=== PATIENT | female | born 1980 | race Caucasian/White ===

== ENCOUNTER 2016-10-31 08:50 | Emergency (ER) | payer OTHER ==
[2016-10-31 09:48] LABS: BASOPHILS 0.7 % (0.0-2.0); EOSINOPHILS 1.8 % (0-7); HEMATOCRIT 41.6 % (36.0-48.0); HEMOGLOBIN 14.3 g/dL (12-16); IMMATURE GRANULOCYTES 0.1 % (0-5); LYMPHOCYTES 44.8 % (15-50); MCH 33.6 pg (26.0-34.0); MCHC 34.4 g/dL (31.0-37.0); MCV 97.9 fL (80.0-100.0); MEAN PLATELET VOLUME 10.2 fL (7.4-10.4); MONOCYTES 9.6 % (2-11); PLATELET COUNT 249 10x3/uL (130-400); RBC 4.25 10x6/uL (4.00-5.40); RDW 12.9 % (11.5-14.5); WBC 7.1 10x3/uL (4.8-10.8)
[2016-10-31 09:55] LABS: APPEARANCE HAZY (CLEAR); BILIRUBIN NEGATIVE (NEGATIVE); COLOR YELLOW (YELLOW); GLUCOSE NEGATIVE (NEGATIVE); KETONE NEGATIVE (NEGATIVE); LEUKOCYTE ESTERASE TRACE (NEGATIVE); NITRITE NEGATIVE (NEGATIVE); PROTEIN TRACE mg/dL (NEGATIVE); UROBILINOGEN NORMAL (NORMAL)
[2016-10-31 10:03] LABS: BACTERIA MODERATE /hpf (NONE SEEN); EPITHELIAL CELLS 0-5 /hpf (0-5); MUCUS <1+ /lpf (NONE SEEN); RED CELLS - URINE 0-5 /hpf (0-5); WHITE CELLS - URINE 0-5 /hpf (0-5)
[2016-10-31 10:17] LABS: HCG SERUM NEGATIVE (NEGATIVE)
== END 2016-10-31 13:34 | disposition home or self-care (01) ==
LOC: D.ER 08:50
PROVIDERS: Emergency Medicine
DX: N76.0 Acute vaginitis (principal); N93.9 Abnormal uterine and vaginal bleeding, unspecified; F17.200 Nicotine dependence, unspecified, uncomplicated

== ENCOUNTER 2018-01-12 13:12 | Emergency (ER) | payer SELFPAY | END 2018-01-12 13:30 | disposition home or self-care (01) | LOC: D.ER 13:12 | DX: Z02.9 Encounter for administrative examinations, unspecified (principal) ==

== ENCOUNTER 2018-06-11 21:56 | Emergency (ER) | payer SELFPAY ==
[~2018-06-11] VITALS: Ht 157.5 cm; Wt 54.5 kg
[2018-06-11 22:03] VITALS: Ht 157.5 cm; Wt 54.5 kg
[2018-06-11 22:58] LABS: BASOPHILS 0.2 % (0-2); EOSINOPHILS 0.2 % (0-7); HEMATOCRIT 41.2 % (36.0-48.0); HEMOGLOBIN 14.7 g/dL (12-16); IMMATURE GRANULOCYTES 0.3 % (0-5); MCH 33.9 pg (26.0-34.0); MCHC 35.7 g/dL (31.0-37.0); MCV 94.9 fL (80.0-100.0); MONOCYTES 8.4 % (2-11); NEUTROPHILS 65.9 % (40-80); PLATELET COUNT 247 10x3/uL (130-400); RBC 4.34 10x6/uL (4.00-5.40); RDW 13.4 % (11.5-14.5); WBC 10.5 10x3/uL (4.8-10.8)
[2018-06-11 23:09] LABS: UDS - AMPHET POSITIVE QUAL (NEGATIVE); UDS - BARB NEGATIVE QUAL (NEGATIVE); UDS - BENZO POSITIVE QUAL (NEGATIVE); UDS - COCAINE NEGATIVE QUAL (NEGATIVE); UDS - OPIATE NEGATIVE QUAL (NEGATIVE); UDS - PCP NEGATIVE QUAL (NEGATIVE); UDS - THC POSITIVE QUAL (NEGATIVE)
[2018-06-11 23:15] LABS: APPEARANCE HAZY (CLEAR); COLOR YELLOW (YELLOW); SPECIFIC GRAVITY 1.015 (1.005-1.020)
[2018-06-11 23:16] LABS: BILIRUBIN NEGATIVE (NEGATIVE); GLUCOSE NEGATIVE (NEGATIVE); KETONE NEGATIVE (NEGATIVE); NITRITE NEGATIVE (NEGATIVE); PROTEIN 1+ mg/dL (NEGATIVE); UROBILINOGEN NORMAL (NORMAL)
[2018-06-11 23:16] LABS: ALBUMIN 4.3 g/dL (3.4-5.0); ALKALINE PHOSPHATASE 62 U/L (46-116); ALT (SGPT) 60 U/L (10-68); BILIRUBIN - TOTAL 0.78 mg/dL (0.2-1.3); CALC OSMOLALITY 279 mosm/kg (275-300); CALCIUM 9.7 mg/dL (8.5-10.1); CARBON DIOXIDE 30.3 mmol/L (21.0-32.0); CHLORIDE - SERUM 99 mmol/L (98-107); CREATININE - SERUM 0.9 mg/dL (0.6-1.3); GLUCOSE 131 mg/dL (74-106); PROTEIN - SERUM 7.5 g/dL (6.4-8.2); SODIUM 138 mmol/L (136-145); UREA NITROGEN 17 mg/dL (7-18); eGFR NON AFRICAN AMERICAN 75 mL/min (90-120)
[2018-06-11 23:17] LABS: BACTERIA MODERATE /hpf (NONE SEEN); EPITHELIAL CELLS 0-5 /hpf (0-5); MUCUS <1+ /lpf (NONE SEEN); WHITE CELLS - URINE 0-5 /hpf (0-5)
[2018-06-12] MEDS ORDERED: TORADOL10 MG PO (01:52)
[2018-06-12 02:00] VITALS: BP 131/78
== END 2018-06-12 02:00 | disposition home or self-care (01) ==
LOC: D.ER 21:56
PROVIDERS: Family Medicine
DX: N20.0 Calculus of kidney (principal); F17.200 Nicotine dependence, unspecified, uncomplicated

== ENCOUNTER 2018-06-16 05:34 | Emergency (ER) | payer MEDICAID ==
[~2018-06-16] VITALS: Ht 157.5 cm; Wt 45.5 kg
[~2018-06-16 05:34] MED LIST: TORADOL10 MG PO
[2018-06-16 05:37] VITALS: Ht 157.5 cm; Wt 45.5 kg
[2018-06-16 06:20] LABS: BASOPHILS 0.2 % (0-2); EOSINOPHILS 0.1 % (0-7); HEMATOCRIT 38.7 % (36.0-48.0); HEMOGLOBIN 13.7 g/dL (12-16); IMMATURE GRANULOCYTES 0.3 % (0-5); LYMPHOCYTES 16.3 % (15-50); MCH 33.4 pg (26.0-34.0); MCHC 35.4 g/dL (31.0-37.0); MCV 94.4 fL (80.0-100.0); MEAN PLATELET VOLUME 9.9 fL (7.4-10.4); MONOCYTES 4.8 % (2-11); NEUTROPHILS 78.3 % (40-80); PLATELET COUNT 268 10x3/uL (130-400); RDW 12.9 % (11.5-14.5); WBC 10.1 10x3/uL (4.8-10.8)
[2018-06-16 06:29] LABS: HCG URINE NEGATIVE (NEGATIVE)
[2018-06-16 06:30] LABS: APPEARANCE HAZY (CLEAR); BILIRUBIN NEGATIVE (NEGATIVE); COLOR YELLOW (YELLOW); GLUCOSE NEGATIVE (NEGATIVE); KETONE NEGATIVE (NEGATIVE); NITRITE NEGATIVE (NEGATIVE); PROTEIN NEGATIVE (NEGATIVE); UROBILINOGEN NORMAL (NORMAL)
[2018-06-16 06:42] LABS: ALBUMIN 4.2 g/dL (3.4-5.0); ALKALINE PHOSPHATASE 62 U/L (46-116); ALT (SGPT) 34 U/L (10-68); CALC OSMOLALITY 272 mosm/kg (275-300); CALCIUM 9.4 mg/dL (8.5-10.1); CARBON DIOXIDE 27.9 mmol/L (21.0-32.0); CHLORIDE - SERUM 100 mmol/L (98-107); CREATININE - SERUM 0.8 mg/dL (0.6-1.3); GLUCOSE 112 mg/dL (74-106); LIPASE 118 U/L (73-393); POTASSIUM - SERUM 3.5 mmol/L (3.5-5.1); PROTEIN - SERUM 7.4 g/dL (6.4-8.2); SODIUM 136 mmol/L (136-145); UREA NITROGEN 12 mg/dL (7-18); eGFR NON AFRICAN AMERICAN 86 mL/min (90-120)
[2018-06-16 06:43] LABS: UDS - AMPHET POSITIVE QUAL (NEGATIVE); UDS - BARB NEGATIVE QUAL (NEGATIVE); UDS - BENZO POSITIVE QUAL (NEGATIVE); UDS - COCAINE NEGATIVE QUAL (NEGATIVE); UDS - OPIATE NEGATIVE QUAL (NEGATIVE); UDS - PCP NEGATIVE QUAL (NEGATIVE); UDS - THC POSITIVE QUAL (NEGATIVE)
[2018-06-16 08:48] VITALS: BP 112/63
== END 2018-06-16 08:49 | disposition home or self-care (01) ==
LOC: D.ER 05:34
PROVIDERS: Family Medicine
DX: R10.9 Unspecified abdominal pain (principal); F19.10 Other psychoactive substance abuse, uncomplicated

== ENCOUNTER 2018-09-30 08:29 | Observation (INO) | payer OTHER ==
[~2018-09-30] VITALS: Ht 157.5 cm; Wt 53.6 kg
--- NOTE | 2018-09-30 10:00 | NUR ---
THIS NURSE UNABLE TO ESTABLISH IV ACCESS, CHARGE NURSE UNABLE TO ESTABLISH IV ACCESS. VASCULAR ACCESS NURSE Debo LEACH RN AT THE BEDSIDE AT THIS TIME TO ATTEMPT IV START.
[2018-09-30 10:15] LABS: AMORPHOUS SEDIMENT >1+ /lpf (NONE SEEN); APPEARANCE SL CLDY (CLEAR); BACTERIA MODERATE /hpf (NONE SEEN); BILIRUBIN NEGATIVE (NEGATIVE); COLOR YELLOW (YELLOW); EPITHELIAL CELLS 0-5 /hpf (0-5); GLUCOSE NEGATIVE (NEGATIVE); KETONE NEGATIVE (NEGATIVE); MUCUS <1+ /lpf (NONE SEEN); NITRITE NEGATIVE (NEGATIVE); PROTEIN NEGATIVE (NEGATIVE); SPECIFIC GRAVITY 1.005 (1.005-1.020); UROBILINOGEN NORMAL (NORMAL); WHITE CELLS - URINE 0-5 /hpf (0-5)
--- NOTE | 2018-09-30 10:29 | NUR ---
AT 1018 VASCULAR NURSE ESTABLISHED 20G IV IN THE LEFT FOREARM. IV APPEARS INFILTRATED AT THIS TIME. VASCULAR NURSE NOTIFIED.
[2018-09-30 11:12] LABS: HEMATOCRIT 39.7 % (36.0-48.0); HEMOGLOBIN 13.6 g/dL (12-16); MCH 33.8 pg (26.0-34.0); MCHC 34.3 g/dL (31.0-37.0); MCV 98.8 fL (80.0-100.0); MEAN PLATELET VOLUME 9.9 fL (7.4-10.4); PLATELET COUNT 349 10x3/uL (130-400); RBC 4.02 10x6/uL (4.00-5.40); RDW 12.6 % (11.5-14.5); WBC 24.1 10x3/uL (4.8-10.8)
[2018-09-30 11:28] LABS: HCG SERUM NEGATIVE (NEGATIVE)
[2018-09-30 11:32] LABS: ALBUMIN 3.8 g/dL (3.4-5.0); ALKALINE PHOSPHATASE 96 U/L (46-116); ALT (SGPT) 57 U/L (10-68); AMYLASE - SERUM 122 U/L (25-115); BILIRUBIN - TOTAL 0.52 mg/dL (0.2-1.3); CALC OSMOLALITY 278 mosm/kg (275-300); CALCIUM 9.5 mg/dL (8.5-10.1); CARBON DIOXIDE 24.8 mmol/L (21.0-32.0); CHLORIDE - SERUM 101 mmol/L (98-107); CREATININE - SERUM 0.7 mg/dL (0.6-1.3); GLUCOSE 136 mg/dL (74-106); LIPASE 106 U/L (73-393); POTASSIUM - SERUM 4.8 mmol/L (3.5-5.1); PROTEIN - SERUM 7.6 g/dL (6.4-8.2); SODIUM 138 mmol/L (136-145); TRIGLYCERIDE 40 mg/dL (30-200); UREA NITROGEN 14 mg/dL (7-18); eGFR NON AFRICAN AMERICAN > 90 mL/min (90-120)
[2018-09-30 11:39] LABS: LYMPHOCYTES 9 % (15-50); MONOCYTES 3 % (2-11); NEUTROPHILS 81 % (40-80); PLATELET ESTIMATE NORMAL
--- NOTE | 2018-09-30 12:25 | NUR ---
VASCULAR ACCESS NURSE STARTED IV IN THE LEFT UPPER ARM, ORDERED NS BOLUS RESTARTED.
[2018-09-30 12:35] VITALS: BP 158/92
--- NOTE | 2018-09-30 12:36 | NUR ---
PT HAS ORAL CONTRAST, PT INSTRUCTED TO DRINK CONTRAST FOR ORDERED CT SCAN. PT REQUESTING ADDITIONAL PAIN MEDICATION, RESPIRATIONS 15/MIN, PT APPEARS DROWSY AT THIS TIME. EDP NOTIFIED.
--- NOTE | 2018-09-30 14:12 | NUR ---
UNABLE TO ESTABLISH IV ACCESS, PER EDP DR. AUSTIN, "ADMITTING PHYSICIAN WILL CONSULT DR. MARTINEZ FOR PLACEMENT OF CENTRAL LINE ONCE PT IS ADMITTED TO [facility] AND NOT IN ER."
[2018-09-30 14:15] VITALS: BP 154/85
[2018-09-30 14:34] LABS: UDS - AMPHET POSITIVE QUAL (NEGATIVE); UDS - BARB NEGATIVE QUAL (NEGATIVE); UDS - BENZO POSITIVE QUAL (NEGATIVE); UDS - COCAINE NEGATIVE QUAL (NEGATIVE); UDS - OPIATE NEGATIVE QUAL (NEGATIVE); UDS - PCP NEGATIVE QUAL (NEGATIVE); UDS - THC POSITIVE QUAL (NEGATIVE)
--- NOTE | 2018-09-30 16:07 | MORECARE ---
CASE MANAGEMENT DISCHARGE SUMMARY PATIENT: NIMISHA COSTELLO UNIT: [id number] ADM DATE: 09/30/18 AGE: 37 : [birth year] SEX: F ROOM/BED: D.E13 AUTHOR: SURINDER RAMOS PHYSICIAN: REFERRING PHYSICIAN: SIRISHA BUNDY DO DATE OF SERVICE: 09/30/18 Discharge Plan Patient Name: NIMISHA COSTELLO Facility: [facility]:[place] : 1980 Planned Disposition: Home or Self Care Anticipated Discharge Date: 10/07/18 Discharge Date: Expected LOS: 7 Initial Reviewer: [email or web address] Initial Review Date: 09/30/2018 Generated: 09/30/18 5:06 pm DCPIA - Discharge Planning Initial Assessment Updated by [email or web address]: Evangelina Rich on 09/30/18 4:03 pm * Is the patient Alert and Oriented? Yes * PCP Don't have one * Pharmacy [facility] * Preadmission Environment Home with Family * ADLs Independent * Equipment None * List name and contact numbers for known caregivers / representatives who currently or will assist patient after discharge: Boyfriend - [phone] she couldn't remember his name. * Community resources currently utilized None * Additional services required to return to the preadmission environment? No * Can the patient safely return to the preadmission environment? Yes * Has this patient been hospitalized within the prior 30 days at any hospital? No Patient Name: NIMISHA COSTELLO Page [id number] at 1607 All edits/amendments must be made on the electronic document DICTATION DATE: 09/30/18 1606 FLOORING MACHINE FEEDER: DARY 09/30/18 1606 RPT#: [id number] DC DATE: STATUS: ADM IN [facility] [address] [place] [address] END OF REPORT
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
--- NOTE | 2018-09-30 16:40 | NUR ---
ADMINISTRATION OF ALL ORDERED IV MEDICATIONS PENDING X-RAY TO VERIFY PLACEMENT OF CENTRAL LINE.
--- NOTE | 2018-09-30 18:18 | NUR ---
ORDERED VANCOMYCIN INITIATED AT 1716 COMPLETE AT 181.
[2018-09-30 18:30] VITALS: BP 121/79
--- NOTE | 2018-09-30 19:01 | NUR ---
REPORT GIVEN TO MONICA PALOMINO.
--- NOTE | 2018-09-30 19:25 | NUR ---
RN CALLED REPORT, ROOM IS DIRTY AT THIS TIME.
--- NOTE | 2018-09-30 19:41 | NUR ---
PT RESTING ON BED, PT UPDATED ON PLAN OF CARE.
[2018-09-30 20:00] VITALS: BP 125/73
--- NOTE | 2018-09-30 20:05 | NUR ---
CEFIPIME INFUSION STOPPED.
--- NOTE | 2018-09-30 20:40 | NUR ---
ROOM IS CLEAN. PT LEFT ED VIA WC AT THIS TIME.
--- NOTE | 2018-09-30 20:45 | NUR ---
RECEIVED PATIENT FROM THE ER VIA WHEELCHAIR. PATIENT IS ALERT AND ORIENTED, RESTING COMFORTABLY IN BED. RESPIRATIONS ARE EVEN AND UNLABORED. NO S/S OF DISTRESS. NO C/O PAIN. PATIENT VERBALIZED NO NEEDS AT THIS TIME. CALL LIGHT WITHIN REACH. WILL CPOC.
[2018-10-01] VITALS (7 sets, daily range): BP systolic 116–158; BP diastolic 70–88; Ht 157.5 cm; Wt 53.6 kg
--- NOTE | 2018-10-01 02:05 | NUR ---
MORPHINE AND ZOFRAN GIVEN FOR PAIN AND NAUSEA.
[2018-10-01 05:37] LABS: ALKALINE PHOSPHATASE 82 U/L (46-116); ALT (SGPT) 47 U/L (10-68); BILIRUBIN - TOTAL 0.45 mg/dL (0.2-1.3); CALCIUM 7.9 mg/dL (8.5-10.1); CARBON DIOXIDE 23.3 mmol/L (21.0-32.0); CHLORIDE - SERUM 100 mmol/L (98-107); CREATININE - SERUM 0.6 mg/dL (0.6-1.3); GLUCOSE 129 mg/dL (74-106); PROTEIN - SERUM 6.3 g/dL (6.4-8.2); SODIUM 133 mmol/L (136-145); eGFR NON AFRICAN AMERICAN > 90 mL/min (90-120)
[2018-10-01 05:38] LABS: ALBUMIN 2.8 g/dL (3.4-5.0); CALC OSMOLALITY 265 mosm/kg (275-300); POTASSIUM - SERUM 3.9 mmol/L (3.5-5.1); UREA NITROGEN 8 mg/dL (7-18)
--- NOTE | 2018-10-01 08:30 | NUR ---
RECIEVED BEDSIDE REPORT. AM ROUNDS COMPLETED. PT CURRENTLY RESTING IN BED WITH EYES OPE. PT VSS, SINUS ON TELE, RR UNLABORED. PT C/O NAUSEA, NO NAUSEA MEDS GIVEN AT THIS TIME. WILL ADMINISTER IN 2HRS. PT DENIES ANY FURTHER NEEDS AT THIS TIME. CL IN REACH, BED IN LOW. WILL CTM.
[2018-10-01 08:48] LABS: HEMATOCRIT 39.4 % (36.0-48.0); HEMOGLOBIN 13.6 g/dL (12-16); LYMPHOCYTES 12.6 % (15-50); MCH 34.2 pg (26.0-34.0); MCHC 34.5 g/dL (31.0-37.0); MEAN PLATELET VOLUME 9.5 fL (7.4-10.4); NEUTROPHILS 81.8 % (40-80); PLATELET COUNT 141 10x3/uL (130-400); RBC 3.98 10x6/uL (4.00-5.40); RDW 12.6 % (11.5-14.5); WBC 15.3 10x3/uL (4.8-10.8)
--- NOTE | 2018-10-01 10:23 | EC ---
PATIENT:NIMISHA COSTELLO DATE OF SERVICE: 09/30/18 SEX: F MEDICAL RECORD: [id number] DATE OF : [birth year] LOCATION:D.M2 D.210 AGE OF PATIENT: 37 ADMISSION DATE: 09/30/18 REFERRING PHYSICIAN: INTERPRETING PHYSICIAN: CHITRA VILLALOBOS MD ECHOCARDIOGRAM REPORT ECHO CHARGES 4 ECHO COMPLETE Date: 09/30/18 CLINICAL DIAGNOSIS: R/O VEG, IV DRUG USE ECHOCARDIOGRAPHIC MEASUREMENTS (adult normal given) AC root (d.<3.7cm) 2.6 cm LV Septum d (<1.2 cm> 0.9 cm Valve Excursion 1.7 cm LV Septum (systole) 1.0 cm Left Atria (s.<4.0cm> 2.8 cm LVPW d(<1.2cm) 0.9 cm RV (d.<2.3cm) 3.4 cm LVPW (sytole) 1.0 cm LV diastole(<5.6CM) 4.3 cm MV E-F(>70mm/sec) cm LV systole 3.5 cm LVOT Diameter 1.8 cm MV exc.(>10mm) cm Est.ejection fraction (50-75%) % DOPPLER: LVIT cm/sec A 81 cm/sec E 82 cm/sec LA cm/sec RVSP 28.7 mmHg LVOT 117 cm/sec AOP1/2T m/s Asc. Ao 168 cm/sec RVOT 81 cm/sec RA cm/sec PA 96 cm/sec AV Gradient Peak 11.3 mmHg AV Mean 5.8 mmHg AV Area 1.8 cm MV Gradient Peak 4.0 mmHg MV Mean 2.4 mmHg MV Area cm COMMENTS: Metal Cans Supervisor: Rashel SIMONS Orthopaedic Doctor: 1 Dr. Villalobos TAPE# PACS Pericardial Effusion N DATE OF SERVICE: 09/30/2018 FINDINGS: 1. Left ventricular chamber size is within normal limits. Left ventricular systolic function is normal. Overall ejection fraction is estimated at 55%. 2. Left atrium, right atrium, and right ventricle chamber sizes are within normal limit. 3. Valvular structures have normal structure and motion. No evidence of vegetative endocarditis. 4. No evidence of pericardial effusion or left ventricular thrombus. ECHOCARDIOGRAM REPORT [id number] NIMISHA COSTELLO OVERALL IMPRESSION: No evidence of vegetative endocarditis. The echo images are excellent and the visualization of the valves are excellent. No need for transesophageal echo as followup. TRANSINT:[id number] Voice Confirmation ID: [id number] DOCUMENT ID: [id number] CHITRA VILLALOBOS MD at 1023 CC: [id number] DICTATION DATE: 09/30/18 1528 STAFF MIDWIFE/APPRENTICESHIP DIRECTOR: 09/30/18 1709 ADM IN [place] [id number] [place] [id number]
--- NOTE | 2018-10-01 11:20 | NUR ---
PT STILL C/O NAUSEA. IV 2ML ZOFRAN GIVEN. SCD ON PATIENT. WILL CTM. CL IN REACH, BED IN LOW.
--- NOTE | 2018-10-01 13:15 | NUR ---
PT REMOVED HER SCDS, AND WAS FOUND CRYING IN BED. ASKED PT IF SHE NEEDS ANYTHING. PT C/O NAUSEA AND GENERALIZED BODY PAIN. BUT STATES ITS MORE CONCENTRATED IN HER ABDOMEN. SHE ALSO STATES SHE VOMITED HER JELLO. NO NAUSEA MEDS GIVEN AT THIS TIME. IV MORPHIN 1MG GIVEN. WILL REASSES IN 20MIN. PT DENIES FURTHER NEEDS AT THIS TIME. WILL CTM. CL IN REACH. BED IN LOW.
--- NOTE | 2018-10-01 14:51 | NUR ---
PT FAMILY IN THE ROOM. PT STATES SHE AND HER MOM WANTS TO TAKE A WALK AROUND THE HOSPITAL.
--- NOTE | 2018-10-01 19:45 | NUR ---
PT RESTING IN BED RESPIRATIONS EVEN AND UNLABORED. PT MOTHER AT BEDSIDE. PT DENIES ANY PAIN OR NEEDS AT THIS TIME. PT UP ADLIB. BED LOW CAll light within reach. WILL CONTINUE TO MONITOR.
[2018-10-02 00:04] VITALS: BP 150/85
[2018-10-02 04:00] VITALS: BP 121/74
--- NOTE | 2018-10-02 04:07 | NUR ---
RN NOTE: PATIENT RESTING COMFORTABLY. RESPIRATIONS ARE EVEN AND UNLABORED. NO S/S OF DISTRESS. NO C/O PAIN. CALL LIGHT WITHIN REACH. WILL CPOC.
--- NOTE | 2018-10-02 07:30 | NUR ---
AM ROUNDS COMPLETED. INTRODUCED MYSELF TO PT PRIMARY RN FOR TODAYS SHIFT. FOCUSED SHIFT ASSESSMENT COMPLETED. PT IS RESTING QUIETLY IN BED WITH EYES CLOSED RR NONLABORED. NO S/S OF DISTRESS OR ANY CURRENT NEEDS AT THIS TIME. CL IN REACH, BED IN LOWEST, SIDE RAILS X2. WILL CTM.
[2018-10-02 07:33] LABS: BASOPHILS 0.3 % (0-2); EOSINOPHILS 0.3 % (0-7); HEMOGLOBIN 11.9 g/dL (12-16); IMMATURE GRANULOCYTES 0.3 % (0-5); MCH 33.7 pg (26.0-34.0); MCV 99.2 fL (80.0-100.0); MEAN PLATELET VOLUME 10.2 fL (7.4-10.4); NEUTROPHILS 65.1 % (40-80); RBC 3.53 10x6/uL (4.00-5.40); RDW 12.5 % (11.5-14.5); WBC 11.6 10x3/uL (4.8-10.8)
[2018-10-02 07:49] LABS: ALBUMIN 2.4 g/dL (3.4-5.0); ALKALINE PHOSPHATASE 70 U/L (46-116); ALT (SGPT) 38 U/L (10-68); BILIRUBIN - TOTAL 0.49 mg/dL (0.2-1.3); CALCIUM 7.3 mg/dL (8.5-10.1); CARBON DIOXIDE 25.4 mmol/L (21.0-32.0); CHLORIDE - SERUM 104 mmol/L (98-107); CREATININE - SERUM 0.5 mg/dL (0.6-1.3); GLUCOSE 96 mg/dL (74-106); PROTEIN - SERUM 5.3 g/dL (6.4-8.2); SODIUM 139 mmol/L (136-145); eGFR NON AFRICAN AMERICAN > 90 mL/min (90-120)
[2018-10-02 07:51] LABS: CALC OSMOLALITY 274 mosm/kg (275-300); POTASSIUM - SERUM 3.2 mmol/L (3.5-5.1); UREA NITROGEN 5 mg/dL (7-18)
[2018-10-02 07:57] LABS: PLATELET COUNT 258 10x3/uL (130-400)
[2018-10-02 08:08] VITALS: BP 134/86
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
--- NOTE | 2018-10-02 10:40 | NUR ---
PT WANTING TO AMBULATE AND STRETCH HER LEGS. MOTHER AT BEDSIDE. WILL ALLOW HER TO WALK ON UNIT. NO CURRENT NEEDS. WILL CTM.
[2018-10-02 12:02] VITALS: BP 126/75
--- NOTE | 2018-10-02 12:28 | NUR ---
PT UP AMBULATING OUT OF ROOM AGAIN HOWEVER THIS TIME SHE DID NOT LET ME KNOW SHE WAS GOING ANYWHERE. WILL PAGE HER BACK TO ROOM IF NOT FOUND ON FLOOR OR BACK SHORTLY.
--- NOTE | 2018-10-02 12:45 | NUR ---
PT BACK AND RESTING QUIETLY IN HER ROOM EATING LUNCH. VISITOR AT BEDSIDE. NO CURRENT NEEDS. WILL CTM.
--- NOTE | 2018-10-02 14:00 | NUR ---
PT LEAVING FOR MRI AT THIS TIME.
--- NOTE | 2018-10-02 14:49 | NUR ---
PT BACK FROM MRI AND RECONNECTED TO HER NS @125ML/HR ORDERED. PT DENIES ANY CURRENT PAIN OR NEEDS AT THIS TIME. CL IN REACH. WILL CTM.
[2018-10-02 16:14] VITALS: BP 111/68
--- NOTE | 2018-10-02 17:34 | NUR ---
PT TOLERATING REGULAR DIET WITHOUT ANY C/O BEING NAUSEATED. PT SITTING UP IN BED AND STATES SHE IS FEELING MUCH BETTER OVERALL AND STATES SHE IS SUPPOSE TO BE DISCHARGED TOMORROW. NO CURRENT NEEDS AT THIS TIME. CL IN REACH, BED IN LOWEST. WILL CPOC.
--- NOTE | 2018-10-02 19:45 | NUR ---
INITIAL ROUNDS COMPLETED - PT SLEEPING IN BED, R CHEST TRIPLE LUMEN PATENT, DRESSING C/D/I. DENIES PAIN OR DISCOMFORT AT THIS TIME, NO NEEDS NOTED. WCTM AND FOLLOW POC. INITIAL ASSESSMENT COMPLETED. SR UP X2, CL IN REACH, BED IN LOWEST POSITION.
[2018-10-02 20:00] VITALS: BP 123/84
[2018-10-03] VITALS: BP 134/89
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
--- NOTE | 2018-10-03 02:32 | NUR ---
TO ROOM VIA CALL LIGHT. PT C/O IV BEEPING AND REQUESTS TO BE DISCONNECTED. BOYFRIEND IN BED WITH PT SLEEPING. NO FURTHER COMPLAINTS AT THIS TIME. WILL CONTINUE TO ASSESS. CL IN REACH, SR UP X2, BED IN LOWEST POSITION.
[2018-10-03 06:25] LABS: BASOPHILS 0.5 % (0-2); HEMATOCRIT 36.5 % (36.0-48.0); HEMOGLOBIN 12.4 g/dL (12-16); IMMATURE GRANULOCYTES 0.4 % (0-5); LYMPHOCYTES 30.1 % (15-50); MCH 33.4 pg (26.0-34.0); MCV 98.4 fL (80.0-100.0); MEAN PLATELET VOLUME 10.3 fL (7.4-10.4); MONOCYTES 8.5 % (2-11); NEUTROPHILS 59.5 % (40-80); PLATELET COUNT 271 10x3/uL (130-400); RBC 3.71 10x6/uL (4.00-5.40); RDW 12.3 % (11.5-14.5); WBC 9.8 10x3/uL (4.8-10.8)
[2018-10-03 06:55] LABS: ALBUMIN 2.4 g/dL (3.4-5.0); ALKALINE PHOSPHATASE 65 U/L (46-116); ALT (SGPT) 36 U/L (10-68); BILIRUBIN - TOTAL 0.35 mg/dL (0.2-1.3); CALC OSMOLALITY 277 mosm/kg (275-300); CALCIUM 8.1 mg/dL (8.5-10.1); CARBON DIOXIDE 26.6 mmol/L (21.0-32.0); CHLORIDE - SERUM 104 mmol/L (98-107); CREATININE - SERUM 0.6 mg/dL (0.6-1.3); GLUCOSE 110 mg/dL (74-106); POTASSIUM - SERUM 3.2 mmol/L (3.5-5.1); PROTEIN - SERUM 5.8 g/dL (6.4-8.2); SODIUM 140 mmol/L (136-145); UREA NITROGEN 6 mg/dL (7-18); eGFR NON AFRICAN AMERICAN > 90 mL/min (90-120)
--- NOTE | 2018-10-03 07:30 | NUR ---
RECEIVED POSITIONED ON RIGHT SIDE WITH EYES CLOSE. OPENED TO NAME. ALERT AND ORIENTED X 4. DENIES ANY NEEDS AT THIS TIME. BED IN LOWEST POSITION, SIDE RAILS UP X 2 AND CALL LIGHT IN REACH. ASSESSMENT COMPLETED AND WILL CONTINUE POC. DRESSING TO RIGHT CVL C/D/I.
[2018-10-03 07:57] VITALS: BP 131/72
--- NOTE | 2018-10-03 09:49 | NUR ---
RESTS IN BED WITH EYES CLOSED. NO S/S DISCOMFORTS NOTED. CALL LIGHT IN REACH. WILL MONITOR.
[2018-10-03] MEDS ORDERED: VIBRAMYCIN 100100 MG PO (12:09)
[2018-10-03] MEDS ORDERED: FLORAJEN3 CAPS460 MG PO (12:09)
--- NOTE | 2018-10-03 13:15 | NUR ---
DISCHARGE INSTRUCTIONS REVIEWED WITH PT AND VERALIZES UNDERSTANDING WITHOUT ANY QUESTIONS. RIGHT SUBCLAVIAN LINE REMOVED BY JOSEPH ANDERSON AND PT TOLERATED WELL. UP AND ABOUT IN ROOM PREPARING TO LEAVE.
--- NOTE | 2018-10-03 13:45 | NUR ---
WENT TO PTS ROOM TO ASK IF SHE WAS READY TO LEAVE AND SHE WAS ALREADY GONE. ALL PERSONAL BELONGINGS GONE. NEVER CALLED OR CAME TO DESK TO LET US KNOW HER RIDE WAS HERE AND READY TO GO.L
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
[2018-10-05 03:11] LABS: HEPATITIS C ANTIBODY >11.0 S/CO RAT (0.0-0.9)
[2018-10-07 12:12] LABS: F. TULARENSIS - IGG Negative (()); F. TULARENSIS - IGM Negative (())
== END 2018-10-03 13:45 | disposition home or self-care (01) ==
LOC: D.ER 08:29 → D.M2 14:17 → D.EDHOLD 14:17 → D.M2 18:48 → OBSVTIME 10-02 14:17 → D.M2 10-03 13:45
PROVIDERS: Emergency Medicine; Student in an Organized Health Care Education/Training Program; ADMIT Family Medicine
DX: L03.114 Cellulitis of left upper limb (principal); E86.0 Dehydration; F15.90 Other stimulant use, unspecified, uncomplicated; F12.90 Cannabis use, unspecified, uncomplicated

== ENCOUNTER 2019-06-27 13:20 | Emergency (ER) | payer MEDICAID ==
[~2019-06-27] VITALS: Ht 157.5 cm; Wt 45.5 kg
[~2019-06-27 13:20] MED LIST changes: +FLORAJEN3 CAPS460 MG PO; +VIBRAMYCIN 100100 MG PO
[2019-06-27 13:46] VITALS: Ht 157.5 cm; Wt 45.5 kg
[2019-06-27 16:05] LABS: BASOPHILS 0.3 % (0-2); EOSINOPHILS 2.7 % (0-7); HEMATOCRIT 33.8 % (36.0-48.0); HEMOGLOBIN 11.5 g/dL (12-16); IMMATURE GRANULOCYTES 0.2 % (0-5); LYMPHOCYTES 25.3 % (15-50); MCH 33.4 pg (26.0-34.0); MCV 98.3 fL (80.0-100.0); MEAN PLATELET VOLUME 9.7 fL (7.4-10.4); NEUTROPHILS 63.5 % (40-80); PLATELET COUNT 317 10x3/uL (130-400); RBC 3.44 10x6/uL (4.00-5.40); RDW 12.7 % (11.5-14.5); WBC 9.1 10x3/uL (4.8-10.8)
[2019-06-27 16:16] LABS: CALC OSMOLALITY 278 mosm/kg (275-300); CALCIUM 8.6 mg/dL (8.5-10.1); CARBON DIOXIDE 28.9 mmol/L (21.0-32.0); CHLORIDE - SERUM 105 mmol/L (98-107); CREATININE - SERUM 0.6 mg/dL (0.6-1.3); GLUCOSE 119 mg/dL (74-106); POTASSIUM - SERUM 3.8 mmol/L (3.5-5.1); SODIUM 139 mmol/L (136-145); UREA NITROGEN 12 mg/dL (7-18); eGFR NON AFRICAN AMERICAN > 90 mL/min (90-120)
[2019-06-27 16:22] LABS: ALBUMIN 2.8 g/dL (3.4-5.0); ALKALINE PHOSPHATASE 84 U/L (46-116); ALT (SGPT) 38 U/L (10-68); BILIRUBIN - TOTAL 0.23 mg/dL (0.2-1.3)
[2019-06-27] MEDS ORDERED: CLEOCIN HCL300 MG PO (16:32)
[2019-06-27] MEDS ORDERED: DICLOFENAC SODI50 MG PO (16:32)
[2019-06-27 17:07] LABS: APPEARANCE HAZY (CLEAR); BILIRUBIN NEGATIVE (NEGATIVE); COLOR YELLOW (YELLOW); GLUCOSE NEGATIVE (NEGATIVE); KETONE NEGATIVE (NEGATIVE); NITRITE NEGATIVE (NEGATIVE); PROTEIN 1+ mg/dL (NEGATIVE); UROBILINOGEN NORMAL (NORMAL)
[2019-06-27 17:11] LABS: UDS - AMPHET POSITIVE QUAL (NEGATIVE); UDS - BARB NEGATIVE QUAL (NEGATIVE); UDS - BENZO NEGATIVE QUAL (NEGATIVE); UDS - COCAINE NEGATIVE QUAL (NEGATIVE); UDS - OPIATE POSITIVE QUAL (NEGATIVE); UDS - PCP NEGATIVE QUAL (NEGATIVE); UDS - THC POSITIVE QUAL (NEGATIVE)
[2019-06-27 17:17] LABS: BACTERIA FEW /hpf (NEGATIVE); EPITHELIAL CELLS 0-5 /hpf (0-5); WHITE CELLS - URINE 0-5 /hpf (NEGATIVE)
[2019-06-27 17:40] VITALS: BP 130/67
== END 2019-06-27 17:41 | disposition home or self-care (01) ==
LOC: D.ER 13:20
PROVIDERS: Family Medicine
DX: S22.32XA Fracture of one rib, left side, initial encounter for closed fracture (principal); X58.XXXA Exposure to other specified factors, initial encounter

== ENCOUNTER 2019-11-04 18:30 | Emergency (ER) | payer OTHER ==
[~2019-11-04] VITALS: Ht 157.5 cm; Wt 506.6 kg
[~2019-11-04 18:30] MED LIST changes: +CLEOCIN HCL300 MG PO; +DICLOFENAC SODI50 MG PO
[2019-11-04 18:35] VITALS: Ht 157.5 cm; Wt 506.6 kg
[2019-11-04] MEDS ORDERED: XANAX0.5 MG PO (18:39)
[2019-11-04 19:43] LABS: BILIRUBIN NEGATIVE (NEGATIVE); GLUCOSE NEGATIVE (NEGATIVE); KETONE NEGATIVE (NEGATIVE); NITRITE NEGATIVE (NEGATIVE); UROBILINOGEN NORMAL (NORMAL)
[2019-11-04 19:46] LABS: HCG URINE NEGATIVE (NEGATIVE)
[2019-11-04] MEDS ORDERED: FLAGYL500 MG PO (20:11)
[2019-11-04 21:00] VITALS: BP 150/97
== END 2019-11-04 20:53 | disposition home or self-care (01) ==
LOC: D.ER 18:30
PROVIDERS: Family Medicine
DX: N76.0 Acute vaginitis (principal)